=== PATIENT | male | born 1965 | race Caucasian/White ===

== ENCOUNTER 2021-11-05 11:43 | Observation (INO) | payer BC ==
--- NOTE | 2021-11-05 12:09 | ERPHSYRPT ---
- History of Present Illness Time Seen by Provider: 11/05/21 12:00 Source: patient, family Exam Limitations: no limitations Physician History: This is a 56-year-old white male patient of Dr. Elli Quintero who in May 2021 underwent a cervical spine fusion surgery and postoperatively he has had intermittent dysphagia that is worsened over the last 3 weeks. He has not able to eat solid foods for the last few weeks. He even is not drinking oral intake well. Patient has a history of elevated cholesterol and hypertension. Patient is feeling weak and dizzy and has fatigue. He denies chest pain. Denies cough and he denies shortness of breath. He presents to the emergency department with positive orthostatic vital signs. Timing/Duration: week(s) (3), worse Severity: moderate Character of Deficits: impaired swallowing Deficits: no difficulties Baseline/Normal Cognition: alert oriented x 3 Current Cognition: alert oriented x 3 Baseline Gait: uses cane Associated Symptoms: fatigue, weakness Allergies/Adverse Reactions: No Known Allergies Allergy (Verified 11/05/21 17:46) Travel Risk - International Travel Have you traveled outside of the country in past 3 weeks: No - Coronavirus Screening Are you exhibiting any of the following symptoms?: No Close contact with a COVID-19 positive Pt in past 14-21 Days: No - Review of Systems Constitutional: Fatigue, Weakness Eyes: No Symptoms, Photophobia Ears, Nose, & Throat: No Symptoms Respiratory: No Symptoms Cardiac: No Symptoms Abdominal/Gastrointestinal: Dysphagia, Appetite Changes Genitourinary Symptoms: No Symptoms (Solids) Musculoskeletal: No Symptoms Skin: No Symptoms Neurological: Dizziness Psychological: No Symptoms Endocrine: No Symptoms Hematologic/Lymphatic: No Symptoms Immunological/Allergic: No Symptoms All Other Systems: Reviewed and Negative - Past Medical History Neurological History: No Pertinent History Cardiac History: High Cholesterol, Hypertension, Other Respiratory History: No Pertinent History Endocrine Medical History: No Pertinent History Musculoskeletal History: Degenerative Disk Disease, Osteoarthritis Other Medical History: 01/2020 - Nursing Vital Signs Nursing Vital Signs: Initial Vital Signs Temperature 97.9 F 11/05/21 11:59 Pulse Rate 82 11/05/21 11:59 Respiratory Rate 24 11/05/21 11:59 Blood Pressure 132/80 11/05/21 11:59 O2 Sat by Pulse Oximetry 98 11/05/21 11:59 Pain Scale Pain Intensity 0 - [place] Coma Scale Best Eye Response ([place]): (4) open spontaneously Best Verbal Response (Anish): (5) oriented Best Motor Response (Anish): (6) obeys commands Anish Total: 15 - Physical Exam General Appearance: no apparent distress, alert, anxiety Eye Exam: bilateral eye: normal inspection, PERRL, EOMI Ears, Nose, Throat Exam: dry mucous membranes Neck Exam: normal inspection, non-tender, supple, full range of motion Respiratory: normal breath sounds, lungs clear, airway intact, No chest tenderness, No respiratory distress Cardiovascular: regular rate/rhythm, normal heart sounds, No normal peripheral pulses Gastrointestinal: soft, normal bowel sounds, No tenderness Rectal Exam: not done Back Exam: normal inspection, normal range of motion, No CVA tenderness, No vertebral tenderness Extremity Exam: normal inspection, normal range of motion, pelvis stable Mental Status: alert, oriented x 3, cooperative bus escort Exam: normal hearing, normal speech, PERRL Motor/Sensory: no motor deficit, no sensory deficit, no pronator drift Skin Exam: normal color, warm, dry SpO2 Interpretation: normal O2 Delivery: Room Air - Course Nursing assessment & vital signs reviewed: Yes EKG Interpreted by Me: RATE (76), Sinus Rhythm, NORMAL AXIS, prolonged QT interval, NORMAL QRS, NORMAL ST-T, Non-specific ST Changes, Other (No acute ischemic changes.) Ordered Tests: Active Orders 24 hr Category Date Time Status Concrete Panel Installer STAT Care 11/05/21 14:11 Active EKG-ER Only STAT Care 11/05/21 12:09 Active IV Insertion STAT Care 11/05/21 12:18 Active Orthostatic Vital Signs STAT Care 11/05/21 12:18 Active POCT Glucose Check STAT Care 11/05/21 12:09 Active HEAD WITHOUT CONTRAST [CT] Stat Exams 11/05/21 12:09 Completed AMYLASE Stat Lab 11/05/21 12:30 Completed CBC W DIFF Stat Lab 11/05/21 12:23 Completed CMP Stat Lab 11/05/21 12:23 Completed CULTURE,URINE Stat Lab 11/05/21 14:35 Received ETHYL ALCOHOL Stat Lab 11/05/21 12:23 Completed LIPASE Stat Lab 11/05/21 12:30 Completed Lactic Acid Stat Lab 11/05/21 14:03 Completed Lactic Acid Stat Lab 11/05/21 16:19 Received MAGNESIUM Stat Lab 11/05/21 12:23 Completed POCT GLUCOSE Stat Lab 11/05/21 12:14 Completed TROPONIN Q4H Lab 11/05/21 12:23 Completed TROPONIN Q4H Lab 11/05/21 15:58 Completed TROPONIN Q4H Lab 11/05/21 20:15 Ordered UA W/RFX CULTURE Stat Lab 11/05/21 14:35 Completed Medication Summary Generic Name Dose Route Start Last Admin Trade Name Freq PRN Reason Stop Dose Admin Potassium Chloride 20 meq in 100 mls @ 50 mls/hr 11/05/21 13:00 11/05/21 15:20 Potassium Chloride 20 Meq In Water 100ml IV 11/05/21 16:59 50 mls/hr Q2H HUMBERTO Administration Discontinued Medications Generic Name Dose Route Start Last Admin Trade Name Freq PRN Reason Stop Dose Admin Sodium Chloride Confirm 11/05/21 12:40 Sodium Chloride 0.9% 1000 Ml Administered 11/05/21 12:41 Dose 1,000 mls @ ud .ROUTE .STK-MED ONE Sodium Chloride 1,000 mls @ 999 mls/hr 11/05/21 14:01 11/05/21 15:44 Sodium Chloride 0.9% 1000 Ml IV 11/05/21 15:01 Infused .Q1H1M STA Infusion Ceftriaxone Sodium/Dextrose 1 g in 50 mls @ 100 mls/hr 11/05/21 16:03 11/05/21 17:22 Rocephin 1 Gm-D5w 50 Ml Bag IV 11/05/21 16:32 Infused STAT STA Infusion Sodium Chloride 1,000 mls @ 999 mls/hr 11/05/21 16:03 11/05/21 17:44 Sodium Chloride 0.9% 1000 Ml IV 11/05/21 17:03 Infused .Q1H1M STA Infusion Ceftriaxone Sodium/Dextrose Confirm 11/05/21 16:30 Rocephin 1 Gm-D5w 50 Ml Bag Administered 11/05/21 16:31 Dose 1 g in 50 mls @ ud IV .STK-MED ONE Lorazepam 1 mg 11/05/21 12:57 11/05/21 13:06 Lorazepam 2 Mg/1 Ml 2 Mg Vial IV 11/05/21 12:58 1 mg STAT ONE Administration Lorazepam Confirm 11/05/21 13:04 Lorazepam 2 Mg/1 Ml 2 Mg Vial Administered 11/05/21 13:05 Dose 2 mg .ROUTE .STK-MED ONE Lab/Rad Data: Laboratory Result Diagrams 11/05/21 12:23 11/05/21 12:23 Laboratory Results 11/05/21 11/05/21 11/05/21 Range/Units 15:58 14:37 14:35 WBC (4.0-10.5) x10^3/uL RBC (4.1-5.6) x10^6/uL Hgb (12.5-18.0) g/dL Hct (42-50) % MCV (78-100) fL MCH (26-32) pg MCHC (32-36) g/dL RDW (11.5-14.0) % Plt Count (150-450) x10^3/uL MPV (7.5-11.0) fL Gran % (36.0-66.0) % Immature Gran % (Auto) (0.00-0.4) % Nucleat RBC Rel Count (0.00-0.1) % Eos # (Auto) (0-0.5) x10^3/uL Immature Gran # (Auto) (0.00-0.03) x10^3u/L Absolute Lymphs (auto) (1.0-4.6) x10^3/uL Absolute Monos (auto) (0.0-1.3) x10^3/uL Absolute Nucleated RBC (0.00-0.01) x10^3u/L Lymphocytes % (24.0-44.0) % Monocytes % (0.0-12.0) % Eosinophils % (0.00-5.0) % Basophils % (0.0-0.4) % Absolute Granulocytes (1.4-6.9) x10^3/uL Basophils # (0-0.4) x10^3/uL Sodium (137-145) mmol/L Potassium (3.5-5.1) mmol/L Chloride (98-107) mmol/L Carbon Dioxide (22-30) mmol/L Anion Gap (5-15) MEQ/L BUN (9-20) mg/dL Creatinine (0.66-1.25) mg/dL Estimated GFR ML/MIN Glucose (74-106) mg/dL POC Glucometer (74 to 106) mg/dL Lactic Acid (0.4-2.0) Calcium (8.4-10.2) mg/dL Magnesium (1.6-2.3) mg/dL Total Bilirubin (0.2-1.3) mg/dL AST (17-59) U/L ALT (0-50) U/L Alkaline Phosphatase (38-126) U/L Troponin I < 0.012 (0.000-0.034) ng/mL Serum Total Protein (6.3-8.2) g/dL Albumin (3.5-5.0) g/dL Amylase (30-110) U/L Lipase (23-300) U/L Urinalys Dipstick Clnc MAIN LAB Urine Color DEJAN (YELLOW) Urine Appearance HAZY (CLEAR) Urine pH 5.5 (5-6) Ur Specific [place] >=1.030 (1.005-1.025) POC Urine Protein Conf TRACE (Negative) Urine Ketones LARGE-80 (NEGATIVE) Urine Nitrite POSITIVE (NEGATIVE) Urine Bilirubin MODERATE (NEGATIVE) Urine Urobilinogen 2 (0-1) mg/dL Urine Leukocytes NEGATIVE (NEGATIVE) Urine WBC (Auto) 3-5 (0-5) /HPF Urine RBC (Auto) NONE (0-2) /HPF U Epithel Cells (Auto) NONE (FEW) /HPF Urine Bacteria (Auto) FEW (NEGATIVE) /HPF Urine RBC NEGATIVE (0-5) Luis/ul Urine Mucus (Auto) SLIGHT (NEGATIVE) /HPF Ur Culture Indicated? YES Urine Glucose NEGATIVE (NEGATIVE) mg/dL Ethyl Alcohol (0-10) mg/dL Influenza Type A Ag NEGATIVE (NEGATIVE) Influenza Type B Ag NEGATIVE (NEGATIVE) RSV (PCR) NEGATIVE (Negative) SARS-CoV-2 (PCR) NEGATIVE (NEGATIVE) 11/05/21 11/05/21 11/05/21 Range/Units 14:03 12:30 12:23 WBC (4.0-10.5) x10^3/uL RBC (4.1-5.6) x10^6/uL Hgb (12.5-18.0) g/dL Hct (42-50) % MCV (78-100) fL MCH (26-32) pg MCHC (32-36) g/dL RDW (11.5-14.0) % Plt Count (150-450) x10^3/uL MPV (7.5-11.0) fL Gran % (36.0-66.0) % Immature Gran % (Auto) (0.00-0.4) % Nucleat RBC Rel Count (0.00-0.1) % Eos # (Auto) (0-0.5) x10^3/uL Immature Gran # (Auto) (0.00-0.03) x10^3u/L Absolute Lymphs (auto) (1.0-4.6) x10^3/uL Absolute Monos (auto) (0.0-1.3) x10^3/uL Absolute Nucleated RBC (0.00-0.01) x10^3u/L Lymphocytes % (24.0-44.0) % Monocytes % (0.0-12.0) % Eosinophils % (0.00-5.0) % Basophils % (0.0-0.4) % Absolute Granulocytes (1.4-6.9) x10^3/uL Basophils # (0-0.4) x10^3/uL Sodium (137-145) mmol/L Potassium (3.5-5.1) mmol/L Chloride (98-107) mmol/L Carbon Dioxide (22-30) mmol/L Anion Gap (5-15) MEQ/L BUN (9-20) mg/dL Creatinine (0.66-1.25) mg/dL Estimated GFR ML/MIN Glucose (74-106) mg/dL POC Glucometer (74 to 106) mg/dL Lactic Acid 3.9 H (0.4-2.0) Calcium (8.4-10.2) mg/dL Magnesium (1.6-2.3) mg/dL Total Bilirubin (0.2-1.3) mg/dL AST (17-59) U/L ALT (0-50) U/L Alkaline Phosphatase (38-126) U/L Troponin I < 0.012 (0.000-0.034) ng/mL Serum Total Protein (6.3-8.2) g/dL Albumin (3.5-5.0) g/dL Amylase 97 (30-110) U/L Lipase 443 H (23-300) U/L Urinalys Dipstick Clnc Urine Color (YELLOW) Urine Appearance (CLEAR) Urine pH (5-6) Ur Specific [place] (1.005-1.025) POC Urine Protein Conf (Negative) Urine Ketones (NEGATIVE) Urine Nitrite (NEGATIVE) Urine Bilirubin (NEGATIVE) Urine Urobilinogen (0-1) mg/dL Urine Leukocytes (NEGATIVE) Urine WBC (Auto) (0-5) /HPF Urine RBC (Auto) (0-2) /HPF U Epithel Cells (Auto) (FEW) /HPF Urine Bacteria (Auto) (NEGATIVE) /HPF Urine RBC (0-5) Luis/ul Urine Mucus (Auto) (NEGATIVE) /HPF Ur Culture Indicated? Urine Glucose (NEGATIVE) mg/dL Ethyl Alcohol (0-10) mg/dL Influenza Type A Ag (NEGATIVE) Influenza Type B Ag (NEGATIVE) RSV (PCR) (Negative) SARS-CoV-2 (PCR) (NEGATIVE) 11/05/21 11/05/21 11/05/21 Range/Units 12:23 12:23 12:14 WBC 11.1 H (4.0-10.5) x10^3/uL RBC 4.26 (4.1-5.6) x10^6/uL Hgb 15.7 (12.5-18.0) g/dL Hct 43.0 (42-50) % MCV 100.9 H (78-100) fL MCH 36.9 H (26-32) pg MCHC 36.5 H (32-36) g/dL RDW 14.1 H (11.5-14.0) % Plt Count 200 (150-450) x10^3/uL MPV 10.2 (7.5-11.0) fL Gran % 76.6 H (36.0-66.0) % Immature Gran % (Auto) 1.0 H (0.00-0.4) % Nucleat RBC Rel Count 0.0 (0.00-0.1) % Eos # (Auto) 0.02 (0-0.5) x10^3/uL Immature Gran # (Auto) 0.11 H (0.00-0.03) x10^3u/L Absolute Lymphs (auto) 1.47 (1.0-4.6) x10^3/uL Absolute Monos (auto) 0.90 (0.0-1.3) x10^3/uL Absolute Nucleated RBC 0.00 (0.00-0.01) x10^3u/L Lymphocytes % 13.2 L (24.0-44.0) % Monocytes % 8.1 (0.0-12.0) % Eosinophils % 0.2 (0.00-5.0) % Basophils % 0.9 (0.0-0.4) % Absolute Granulocytes 8.52 H (1.4-6.9) x10^3/uL Basophils # 0.10 (0-0.4) x10^3/uL Sodium 129 L (137-145) mmol/L Potassium 2.3 L* (3.5-5.1) mmol/L Chloride 89 L (98-107) mmol/L Carbon Dioxide 26 (22-30) mmol/L Anion Gap 16.6 H (5-15) MEQ/L BUN 10 (9-20) mg/dL Creatinine 0.83 (0.66-1.25) mg/dL Estimated GFR > 60.0 ML/MIN Glucose 105 (74-106) mg/dL POC Glucometer 113 H (74 to 106) mg/dL Lactic Acid (0.4-2.0) Calcium 8.3 L (8.4-10.2) mg/dL Magnesium 2.0 (1.6-2.3) mg/dL Total Bilirubin 3.40 H (0.2-1.3) mg/dL AST 102 H (17-59) U/L ALT 39 (0-50) U/L Alkaline Phosphatase 163 H (38-126) U/L Troponin I (0.000-0.034) ng/mL Serum Total Protein 7.7 (6.3-8.2) g/dL Albumin 3.8 (3.5-5.0) g/dL Amylase (30-110) U/L Lipase (23-300) U/L Urinalys Dipstick Clnc Urine Color (YELLOW) Urine Appearance (CLEAR) Urine pH (5-6) Ur Specific [place] (1.005-1.025) POC Urine Protein Conf (Negative) Urine Ketones (NEGATIVE) Urine Nitrite (NEGATIVE) Urine Bilirubin (NEGATIVE) Urine Urobilinogen (0-1) mg/dL Urine Leukocytes (NEGATIVE) Urine WBC (Auto) (0-5) /HPF Urine RBC (Auto) (0-2) /HPF U Epithel Cells (Auto) (FEW) /HPF Urine Bacteria (Auto) (NEGATIVE) /HPF Urine RBC (0-5) Luis/ul Urine Mucus (Auto) (NEGATIVE) /HPF Ur Culture Indicated? Urine Glucose (NEGATIVE) mg/dL Ethyl Alcohol < 10 (0-10) mg/dL Influenza Type A Ag (NEGATIVE) Influenza Type B Ag (NEGATIVE) RSV (PCR) (Negative) SARS-CoV-2 (PCR) (NEGATIVE) - Progress Progress: improved, re-examined Progress Note: 11/05/21 14:10 CAT scan of the head without contrast shows a remote lacunar infarct of the left basal ganglia. There is global atrophy present. There is no acute intracranial abnormality. 11/05/21 17:43 Medical decision making: I spoke with Dr. Prieto who is covering for unassigned patients. This patient has a significant urinary tract infection. He is significantly dehydrated. We were just informed that the patient does have a significant alcohol history. His alcohol level is normal at this time. Pharmacy is not available to order a banana bag at this time. We will IV hydrate him and provide him with K riders during the evening. We will repeat labs in the morning. We will keep his head of the bed up and allow him to take in clear liquids only. We have requested the cervical spine fusion surgical records from [facility]. Dr. Prieto will order GI swallowing studies. Counseled pt/family regarding: lab results, diagnosis - Departure Departure Disposition: In-patient Admission Clinical Impression: Dehydration, Hypokalemia, Dysphagia Condition: Fair Critical Care Time: No
[2021-11-05 12:26] LABS: Absolute Neutrophil Ct (ANC) 8.52 x10^3/uL (1.4-6.9); Eosinophil % 0.2 % (0.00-5.0); Eosinophil (Absolute #) 0.02 x10^3/uL (0-0.5); Hemoglobin 15.7 g/dL (12.5-18.0); Lymphocyte (Absolute #) 1.47 x10^3/uL (1.0-4.6); Lymphocytes % 13.2 % (24.0-44.0); Mean Cell Volume 100.9 fL (78-100); Mean Corpuscular Hemoglobin 36.9 pg (26-32); Mean Corpuscular Hgb Concent. 36.5 g/dL (32-36); Mean Platelet Volume 10.2 fL (7.5-11.0); Monocytes % 8.1 % (0.0-12.0); Neutrophil % 76.6 % (36.0-66.0); Platelet Count 200 x10^3/uL (150-450); Red Blood Count 4.26 x10^6/uL (4.1-5.6); Red Cell Distribution Width 14.1 % (11.5-14.0); White Blood Count 11.1 x10^3/uL (4.0-10.5)
[2021-11-05] MEDS ORDERED: Sodium Chloride 0.9% 1000 ML 1,000 ML ONE (12:40)
[2021-11-05 12:46] LABS: ALBUMIN 3.8 g/dL (3.5-5.0); ALKALINE PHOSPHATASE 163 U/L (38-126); ANION GAP 16.6 MEQ/L (5-15); BLOOD UREA NITROGEN 10 mg/dL (9-20); CHLORIDE 89 mmol/L (98-107); Calcium 8.3 mg/dL (8.4-10.2); Carbon Dioxide 26 mmol/L (22-30); Creatinine 1 0.83 mg/dL (0.66-1.25); EST GLOMERULAR FILTRATION RATE > 60.0 ML/MIN; ETHYL ALCOHOL < 10 mg/dL (0-10); Glucose 105 mg/dL (74-106); SGOT/AST 102 U/L (17-59); SGPT/ALT 39 U/L (0-50); SODIUM 129 mmol/L (137-145); Total Protein 7.7 g/dL (6.3-8.2)
[2021-11-05 12:48] LABS: Potassium 2.3 mmol/L (3.5-5.1)
--- NOTE | 2021-11-05 12:54 | XRAY ---
Indication: Syncope and weakness 5 months. High blood pressure. Multiple contiguous axial images obtained through the head without contrast. Comparison: None Age-appropriate global atrophy. Remote lacunar infarct left basal ganglia. No acute intracranial hemorrhage, abnormal extra-axial fluid collection, or mass effect. Fourth ventricle is midline without hydrocephalus. Bony calvarium intact. Complete opacification right maxillary sinus with mild mucosal thickening both ethmoid sinuses. Mastoid air cells are clear. Impression: Remote lacunar infarct left basal ganglia and paranasal sinus disease. Remaining CT head without contrast exam is negative.
[2021-11-05] MEDS ORDERED: Ativan 2 MG/1 ML VIAL IV ONE (12:57)
[2021-11-05] MEDS ORDERED: Ativan 2 MG/1 ML VIAL ONE (13:04)
[2021-11-05] MEDS: POTASSIUM CHLORIDE 20 mEq IN WATER 100ML 20 MEQ/100 ML BAG IV SCH ×2 (13:06→15:20)
[2021-11-05] MEDS ORDERED: Sodium Chloride 0.9% 1000 ML 1,000 ML IV STA ×2 (14:01→16:03)
[2021-11-05 14:44] LABS: Appearance HAZY (CLEAR); Bilirubin MODERATE (NEGATIVE); Glucose NEGATIVE (NEGATIVE); Ketones LARGE-80 (NEGATIVE); Ph 5.5 (5-6); Protein,Urine Dip TRACE (Negative); RBC NEGATIVE Ery/ul (0-5); Specific Gravity >=1.030 (1.005-1.025)
[2021-11-05 14:45] LABS: Dipstick done @ ? MAIN LAB; Nitrite POSITIVE (NEGATIVE); Urobilinogen 2 mg/dL (0-1)
[2021-11-05 14:48] LABS: AMYLASE 97 U/L (30-110); LIPASE 443 U/L (23-300)
[2021-11-05 14:48] LABS: Bacteria FEW /HPF (NEGATIVE); Mucus SLIGHT /HPF (NEGATIVE)
[2021-11-05 14:49] LABS: Urine Cultured Indicated? YES
[2021-11-05 15:14] LABS: INFLUENZA A NEGATIVE (NEGATIVE); INFLUENZA B NEGATIVE (NEGATIVE); RESPIRATORY SYNCTIAL VIRUS NEGATIVE (Negative); SARS-CoV-2 Xpert Express NEGATIVE (NEGATIVE)
[2021-11-05] MEDS ORDERED: ROCEPHIN 1 Gm-D5w 50 ml Bag** 1 G/50 ML IVPB IV STA (16:03)
[2021-11-05] MEDS ORDERED: ROCEPHIN 1 Gm-D5w 50 ml Bag** 1 G/50 ML IVPB IV ONE (16:30)
[2021-11-05] MEDS ORDERED: TYLENOL 325 MG PO PRN (18:12)
[2021-11-05] MEDS ORDERED: FOLATE 1 MG PO ONE (18:16)
[2021-11-05] MEDS ORDERED: VITAMIN B-1 100 MG PO ONE (18:16)
[2021-11-05] MEDS ORDERED: Ativan 2 MG/1 ML VIAL IV PRN (18:18)
[2021-11-05] MEDS: Sodium Chloride 0.9% W/ 20 mEq KCl/LITER 1,000 ML IV SCH (18:48)
[2021-11-05] MEDS ORDERED: Zofran 4 MG/2 ML VIAL IV PRN (19:34)
[2021-11-05 20:53] LABS: ANION GAP 8.1 MEQ/L (5-15); BLOOD UREA NITROGEN 8 mg/dL (9-20); CHLORIDE 92 mmol/L (98-107); Calcium 7.7 mg/dL (8.4-10.2); Carbon Dioxide 31 mmol/L (22-30); Creatinine 1 0.73 mg/dL (0.66-1.25); EST GLOMERULAR FILTRATION RATE > 60.0 ML/MIN; Glucose 93 mg/dL (74-106); SODIUM 128 mmol/L (137-145)
[2021-11-05 21:02] LABS: Potassium 2.8 mmol/L (3.5-5.1)
[2021-11-05] MEDS: K-LYTE PO ONE (21:23)
[2021-11-05] MEDS: POTASSIUM CHLORIDE 20 mEq IN WATER 100ML 100 ML IV SCH (21:24)
[2021-11-06] MEDS: POTASSIUM CHLORIDE 20 mEq IN WATER 100ML 100 ML IV SCH (00:02)
[2021-11-06] MEDS: Sodium Chloride 0.9% W/ 20 mEq KCl/LITER 1,000 ML IV SCH ×2 (02:39→09:07)
[2021-11-06 05:00] LABS: Hematocrit 39.5 % (42-50); Hemoglobin 14.1 g/dL (12.5-18.0); Mean Cell Volume 101.8 fL (78-100); Mean Corpuscular Hemoglobin 36.3 pg (26-32); Mean Corpuscular Hgb Concent. 35.7 g/dL (32-36); Mean Platelet Volume 10.1 fL (7.5-11.0); Platelet Count 156 x10^3/uL (150-450); Red Blood Count 3.88 x10^6/uL (4.1-5.6); Red Cell Distribution Width 14.7 % (11.5-14.0); White Blood Count 6.6 x10^3/uL (4.0-10.5)
[2021-11-06 05:24] LABS: ALBUMIN 2.8 g/dL (3.5-5.0); ALKALINE PHOSPHATASE 113 U/L (38-126); ANION GAP 7.3 MEQ/L (5-15); BLOOD UREA NITROGEN 8 mg/dL (9-20); CHLORIDE 97 mmol/L (98-107); Calcium 7.7 mg/dL (8.4-10.2); Carbon Dioxide 30 mmol/L (22-30); Creatinine 1 0.66 mg/dL (0.66-1.25); EST GLOMERULAR FILTRATION RATE > 60.0 ML/MIN; Glucose 87 mg/dL (74-106); SGOT/AST 79 U/L (17-59); SGPT/ALT 31 U/L (0-50); SODIUM 131 mmol/L (137-145)
[2021-11-06 05:31] LABS: Potassium 2.8 mmol/L (3.5-5.1)
[2021-11-06] MEDS ORDERED: K-LYTE PO ONE (05:46)
[2021-11-06] MEDS: K-LYTE PO ONE (05:54)
[2021-11-06] MEDS ORDERED: POTASSIUM CHLORIDE 20 mEq IN WATER 100ML 100 ML IV SCH (06:00)
[2021-11-06] MEDS ORDERED: VITAMIN B-1 100 MG PO SCH (10:00)
[2021-11-06] MEDS ORDERED: FOLATE 1 MG PO SCH (10:00)
[2021-11-06] MEDS ORDERED: THIAMINE 200 MG/2 ML*** 100 MG, Vitamins For Infusion 10 ML INJECTION*** 10 ML, FOLNATE... IV PRN ×4 (11:00)
[2021-11-06 13:04] LABS: ANION GAP 9.8 MEQ/L (5-15); BLOOD UREA NITROGEN 8 mg/dL (9-20); CHLORIDE 97 mmol/L (98-107); Calcium 7.7 mg/dL (8.4-10.2); Carbon Dioxide 28 mmol/L (22-30); Creatinine 1 0.64 mg/dL (0.66-1.25); EST GLOMERULAR FILTRATION RATE > 60.0 ML/MIN; Glucose 120 mg/dL (74-106); Potassium 3.1 mmol/L (3.5-5.1); SODIUM 132 mmol/L (137-145)
[2021-11-06 15:39] VITALS: BP 122/86; PULSE 91; O2SAT 96
[2021-11-06] MEDS ORDERED: ROCEPHIN 1 Gm-D5w 50 ml Bag** 1 G/50 ML IVPB IV SCH (22:00)
--- NOTE | 2021-11-06 23:58 | PCM.HP ---
History of Present Illness - Chief Complaint Chief Complaint: DEHYDRATION, HYPOKALEMIA, DYSPHAGIA History of Present Illness: is a 56 year old male. Medications & Allergies Home Medications: Home Medication List Cefuroxime Axetil 500 mg [Ceftin 500 mg] 500 mg PO BID #14 tablet 11/06/21 [Rx] Potassium Chloride [Klor-Con M20] 20 meq PO DAILY #10 tablet 11/06/21 [Rx] Allergies/Adverse Reactions: Allergies Allergy/AdvReac Type Severity Reaction Status Date / Time No Known Allergies Allergy Verified 11/05/21 17:46 - Past Medical History Past Medical History: Yes Neurological History: No Pertinent History ENT History: No Pertinent History Cardiac History: High Cholesterol, Hypertension, Other Respiratory History: No Pertinent History Endocrine Medical History: No Pertinent History Musculoskelatal History: Degenerative Disk Disease, Osteoarthritis GI Medical History: No Pertinent History History: No Pertinent History Pyscho-Social History: Anxiety, Depression Male Reproductive Disorders: No Pertinent History Comment: 01/2020 - Past Surgical History Past Surgical History: Yes Neuro Surgical History: Other Cardiac History: Cardiac Catheterization Respiratory Surgery: No Pertinent History GI Surgical History: Hernia Repair Genitourinary Surgical Hx: No Pertinent History Musculskeletal Surgical Hx: No Pertinent History Male Surgical History: No Pertinent History Other Surgical History: Neck and back surgery. - Social History Smoking Status: Never smoker Exposure to second hand smoke: No Alcohol: Daily Drug Use: none - Physical Exam Vital Signs: Vital Signs - 24 hr Temp Pulse Resp BP Pulse Ox 11/06/21 16:00 16 11/06/21 15:38 97.6 F 91 H 16 122/86 96 11/06/21 11:29 97.9 F 77 18 117/65 94 L 11/06/21 11:17 16 11/06/21 08:00 16 11/06/21 07:06 98.1 F 78 16 115/73 95 11/06/21 04:00 95.7 F 88 15 115/69 94 L 11/06/21 00:00 16 Results - Labs Lab/Micro Results: Lab Results-Last 24 Hours 11/06/21 11/06/21 11/06/21 Range/Units 04:30 04:30 12:45 WBC 6.6 (4.0-10.5) x10^3/uL RBC 3.88 L (4.1-5.6) x10^6/uL Hgb 14.1 (12.5-18.0) g/dL Hct 39.5 L (42-50) % MCV 101.8 H (78-100) fL MCH 36.3 H (26-32) pg MCHC 35.7 (32-36) g/dL RDW 14.7 H (11.5-14.0) % Plt Count 156 (150-450) x10^3/uL MPV 10.1 (7.5-11.0) fL Sodium 131 L 132 L (137-145) mmol/L Potassium 2.8 L* 3.1 L (3.5-5.1) mmol/L Chloride 97 L 97 L (98-107) mmol/L Carbon Dioxide 30 28 (22-30) mmol/L Anion Gap 7.3 9.8 (5-15) MEQ/L BUN 8 L 8 L (9-20) mg/dL Creatinine 0.66 0.64 L (0.66-1.25) mg/dL Estimated GFR > 60.0 > 60.0 ML/MIN Glucose 87 120 H (74-106) mg/dL Calcium 7.7 L 7.7 L (8.4-10.2) mg/dL Magnesium 2.0 (1.6-2.3) mg/dL Total Bilirubin 2.10 H (0.2-1.3) mg/dL AST 79 H (17-59) U/L ALT 31 (0-50) U/L Alkaline Phosphatase 113 (38-126) U/L Serum Total Protein 6.0 L (6.3-8.2) g/dL Albumin 2.8 L (3.5-5.0) g/dL Microbiology 11/05/21 14:35 Urine Culture - Preliminary Clean Catch Midstream NO GROWTH TO DATE - Radiology Impressions Radiology Exams & Impressions: Radiology Procedures Category Date Time Status HEAD WITHOUT CONTRAST [CT] Stat Exams 11/05/21 12:09 Completed Assessment/Plan (1) Dehydration Status: Resolved Assessment & Plan: resolved after overnight IV hydration Code(s): E86.0 - DEHYDRATION (2) Hypokalemia Assessment & Plan: will need to be monitored by PCP on discharge. Code(s): E87.6 - HYPOKALEMIA (3) Dysphagia Status: Suspected Qualifiers: Dysphagia type: unspecified Qualified Code(s): R13.10 - Dysphagia, unspecified Assessment & Plan: refused Speech therapiy evaluation Code(s): R13.10 - DYSPHAGIA, UNSPECIFIED (4) Leukocytosis Status: Resolved Assessment & Plan: presumed from UTI Code(s): D72.829 - ELEVATED WHITE BLOOD CELL COUNT, UNSPECIFIED (5) UTI (urinary tract infection) Status: Acute Assessment & Plan: started on Rocephin in ER, Culture pending. Code(s): N39.0 - URINARY TRACT INFECTION, SITE NOT SPECIFIED
== END 2021-11-06 16:36 | disposition home or self-care (01) ==
LOC: ED 11:43 → MED SURG 17:43
PROVIDERS: ADMIT Family Medicine; ATTEND Family Medicine
DX: E86.0 Dehydration (principal); E87.6 Hypokalemia; R13.10 Dysphagia, unspecified; D72.829 Elevated white blood cell count, unspecified; N39.0 Urinary tract infection, site not specified; I10 Essential (primary) hypertension; E78.00 Pure hypercholesterolemia, unspecified; Z79.899 Other long term (current) drug therapy; Z20.828 Contact with and (suspected) exposure to other viral communicable diseases
CPT/HCPCS: 0241U; 36000; 36415; 70450; 80048; 80053; 80307; 81015; 82150; 82947; 83605; 83690; 83735; 84484; 85025; 85027; 87086; 93005; 93041; 96360; 96361; 96365; 96374; 99285; 93268; J0696; J2060; J3480; A9270-GY; G0378; G0480

== ENCOUNTER 2023-01-15 07:30 | Day surgery (SDC) | payer BC, OTHER ==
[2023-01-15] MEDS ORDERED: Decadron 4 MG INJ IV ONE (07:31)
[2023-01-15] MEDS ORDERED: LIDOCAINE HCL 2% 100 MG/5 ML IJ ONE (07:31)
[2023-01-15] MEDS ORDERED: DIPRIVAN 200 MG/20 ML IV ONE (10:00)
[2023-01-15] MEDS ORDERED: Lactated Ringers 1,000 ML IV ONE (10:36)
--- NOTE | 2023-01-15 11:46 | XRAY ---
Indication: Right C3-C5 MBB. Intraoperative fluoroscopy provided for 32 seconds. 2 digital spot images submitted for interpretation demonstrates posterior needle tips projecting over the expected right C3-C5 nerve roots. Correlate with intraoperative findings/report. Incidental lower cervical fusion hardware.
--- NOTE | 2023-01-15 11:52 | XRAY ---
32 seconds of fluoroscopy was used in surgery for a right C3-C5 MBB.
== END 2023-01-15 10:32 | disposition home or self-care (01) ==
LOC: SDC-PAIN 07:30
PROVIDERS: ATTEND Psychiatry & Neurology Pain Medicine
DX: M47.812 Spondylosis without myelopathy or radiculopathy, cervical region (principal)
CPT/HCPCS: 64490; 64491; 72040; 77002; J1100; J2704

== ENCOUNTER 2023-02-26 10:14 | Day surgery (SDC) | payer OTHER ==
[2023-02-26] MEDS ORDERED: Decadron 4 MG INJ IV ONE (10:15)
[2023-02-26] MEDS ORDERED: BUPIVACAINE 0.5% VIAL IJ ONE (10:15)
[2023-02-26] MEDS ORDERED: Versed 2 MG/2 ML Injection ONE (12:17)
[2023-02-26] MEDS ORDERED: DIPRIVAN 200 MG/20 ML IV ONE (12:17)
--- NOTE | 2023-02-26 13:59 | XRAY ---
Indication: Right C3-C5 MBB. Intraoperative fluoroscopy provided for 33 seconds. 5 digital spot images submitted for interpretation demonstrates posterior needle tips projecting over the expected right C3-C5 nerve roots. Correlate with intraoperative findings/report.
[2023-02-26] MEDS ORDERED: Lactated Ringers 1,000 ML IV ONE (16:32)
--- NOTE | 2023-02-26 16:57 | XRAY ---
33 seconds of fluoroscopy was used in surgery for a right C3-C5 MBB.
== END 2023-02-26 12:55 | disposition home or self-care (01) ==
LOC: SDC-PAIN 10:14
PROVIDERS: ATTEND Psychiatry & Neurology Pain Medicine
DX: M47.812 Spondylosis without myelopathy or radiculopathy, cervical region (principal)
CPT/HCPCS: 64490; 64491; 72040; 77002; J1100; J2250; J2704

== ENCOUNTER 2023-04-16 11:26 | Day surgery (SDC) | payer OTHER ==
[2023-04-16] MEDS ORDERED: XYLOCAINE-MPF 1% 5ML SDV IJ ONE (11:27)
[2023-04-16] MEDS ORDERED: BUPIVACAINE 0.5% VIAL IJ ONE (11:27)
[2023-04-16] MEDS ORDERED: Decadron 4 MG INJ IV ONE (11:27)
[2023-04-16] MEDS ORDERED: Lactated Ringers 1,000 ML IV ONE (13:43)
[2023-04-16] MEDS ORDERED: DIPRIVAN 200 MG/20 ML IV ONE ×2 (13:54→14:06)
--- NOTE | 2023-04-16 17:01 | XRAY ---
Indication: Right C3-C5 RFA. Intraoperative fluoroscopy provided for 40 seconds. 6 digital spot images submitted for interpretation demonstrates posterior needle tips projecting over the expected right C3-C5 nerve roots. Correlate with intraoperative findings/report. Incidental incompletely visualized lower cervical fusion hardware.
--- NOTE | 2023-04-16 17:42 | XRAY ---
40 seconds of fluoroscopy was used in surgery for a right C3-C5 RFA.
== END 2023-04-16 14:32 | disposition home or self-care (01) ==
LOC: SDC-PAIN 11:26
PROVIDERS: ATTEND Psychiatry & Neurology Pain Medicine
DX: M47.812 Spondylosis without myelopathy or radiculopathy, cervical region (principal)
CPT/HCPCS: 64633; 64634; 72040; 77002; J1100; J2704

== ENCOUNTER 2023-12-10 11:02 | Day surgery (SDC) | payer BC, MEDICARE ==
[2023-12-10] MEDS ORDERED: Xylocaine-Mpf 2% 5 Ml Vial IJ ONE (11:03)
[2023-12-10] MEDS ORDERED: Decadron 4 MG INJ IV ONE (11:03)
[2023-12-10] MEDS ORDERED: DIPRIVAN 200 MG/20 ML IV ONE (13:33)
[2023-12-10] MEDS ORDERED: Lactated Ringers 1,000 ML IV ONE (14:47)
--- NOTE | 2023-12-10 14:48 | XRAY ---
Indication: Left C3-C5 MBB. Intraoperative fluoroscopy provided for 18 seconds. 2 digital spot images submitted for interpretation demonstrates posterior needle tips projecting over the expected left C3-C5 nerve roots. Correlate with intraoperative findings/report. Incidental incompletely visualized lower cervical fusion hardware.
--- NOTE | 2023-12-10 15:00 | XRAY ---
18 seconds of fluoroscopy was used in surgery for a left C3-C5 MBB.
== END 2023-12-10 14:10 | disposition home or self-care (01) ==
LOC: SDC-PAIN 11:02
PROVIDERS: ATTEND Psychiatry & Neurology Pain Medicine
DX: M47.812 Spondylosis without myelopathy or radiculopathy, cervical region (principal)
CPT/HCPCS: 64490; 64491; 72040; 77002; J1100; J2704

== ENCOUNTER 2024-01-21 10:09 | Day surgery (SDC) | payer MEDICARE ==
[2024-01-21] MEDS ORDERED: BUPIVACAINE 0.5% VIAL IJ ONE (10:10)
[2024-01-21] MEDS ORDERED: DIPRIVAN 200 MG/20 ML IV ONE (12:25)
--- NOTE | 2024-01-21 14:18 | XRAY ---
Indication: Left C3-C5 MBB. Intraoperative fluoroscopy provided for 16 seconds. 3 digital spot image submitted for interpretation demonstrates posterior needle tips projecting over the expected left C3-C5 nerve roots. Correlate with intraoperative findings/report. Incidental lower cervical fusion hardware.
--- NOTE | 2024-01-21 14:23 | XRAY ---
16 seconds of fluoroscopy was used in surgery for a left C3-C5 MBB.
== END 2024-01-21 12:58 | disposition home or self-care (01) ==
LOC: SDC-PAIN 10:09
PROVIDERS: ATTEND Psychiatry & Neurology Pain Medicine
DX: M47.812 Spondylosis without myelopathy or radiculopathy, cervical region (principal)
CPT/HCPCS: 64490; 64491; 72040; 77002; J2704

== ENCOUNTER 2024-02-25 06:39 | Day surgery (SDC) | payer MEDICARE ==
[2024-02-25] MEDS ORDERED: LIDOCAINE HCL 1% AMPUL 5 ML IJ ONE (06:40)
[2024-02-25] MEDS ORDERED: BUPIVACAINE 0.5% VIAL IJ ONE (06:40)
[2024-02-25] MEDS ORDERED: Decadron 4 MG INJ IV ONE (06:40)
[2024-02-25] MEDS ORDERED: DIPRIVAN 200 MG/20 ML IV ONE ×3 (08:01→08:18)
--- NOTE | 2024-02-25 10:08 | XRAY ---
Indication: Left C3-C5 RFA. Intraoperative fluoroscopy provided for 25 seconds. 5 digital spot image submitted for interpretation demonstrates posterior needle tips projecting over expected left C3-C5 nerve roots. Correlate with intraoperative findings/report. Incidental lower cervical fusion hardware.
--- NOTE | 2024-02-25 11:01 | XRAY ---
25 seconds of fluoroscopy was used in surgery for a left C3-C5 RFA.
== END 2024-02-25 08:43 | disposition home or self-care (01) ==
LOC: SDC-PAIN 06:39
PROVIDERS: ATTEND Psychiatry & Neurology Pain Medicine
DX: M47.812 Spondylosis without myelopathy or radiculopathy, cervical region (principal)
CPT/HCPCS: 72040; 77002; J1100; J2704

== ENCOUNTER 2024-06-16 10:51 | Emergency (ER) | payer MEDICARE ==
[2024-06-16 11:02] VITALS: TEMP 97.9
[2024-06-16] MEDS ORDERED: Zofran 4 MG/2 ML VIAL ONE ×2 (11:33→20:41)
[2024-06-16] MEDS ORDERED: Sodium Chloride 0.9% 500 ML 500 ML IV ONE (11:33)
[2024-06-16] MEDS: Sodium Chloride 0.9% 500 ML 500 ML IV ONE (11:36)
[2024-06-16] MEDS: Zofran 4 MG/2 ML VIAL IV ONE ×2 (11:37→20:45)
--- NOTE | 2024-06-16 11:37 | ERPHSYRPT ---
- History of Present Illness Historian: patient Exam Limitations: no limitations Patient Subjective Stated Complaint: Pt states "I went to [facility] and she ordered a ct and blood work and they think that my gall bladder is leaking and tole me to come here." Triage Nursing Assessment: Pt presented alert and oriented X 3, skin wpd. pt ambulates with an upright steady gait, able to speak in clear full sentences.Pt resting comfortably on the bed. Timing/Duration: week(s) (8) Activities at Onset: none Quality: aching Abdominal Pain Onset Location: RUQ Pain Radiation: no radiation Severity of Pain-Max: mild Severity of Pain-Current: mild Modifying Factors: Improves With: eating Associated Symptoms: diarrhea, loss of appetite, nausea, vomiting, No rash Previous symptoms: same symptoms as today Hx Tetanus, Diphtheria Vaccination/Date Given: No Hx Influenza Vaccination/Date Given: No Hx Pneumococcal Vaccination/Date Given: No Immunizations Up to Date: No - History of Present Illness Time Seen by Provider: 06/16/24 11:20 Physician History: 59yo m pmhx HTN, chronic alcohol use presents via private vehicle for nausea and vomiting that has been ongoing for the past 2 months. Pt reports he had lab work and a CT abd/pelvis w/ contrast ordered by his PCP (Christopher) that were performed yesterday, reports her office called and recommended he come to the ED because his "gallbladder is leaking." Pt reports he has had limited PO intake for the past 2 months. Pt reports vomiting green bilious fluids this AM, also endorses intermittent diarrhea for the past 2 months. Pt currently has holter monitor on for further w/u of his weakness and nausea - was ordered by PCP. (SANGITA OLIVIER) Allergies/Adverse Reactions: No Known Allergies Allergy (Verified 11/05/21 17:46) Home Medications: Carvedilol 3.125 mg [Coreg 3.125 MG] 3.125 mg PO BID 06/16/24 [History] Lisinopril 20 mg [Zestril 20 MG] 20 mg PO BID 06/16/24 [History] Pregabalin [Lyrica 150Mg] 150 mg PO TID 06/16/24 [History] methocarbamoL [Methocarbamol] 500 mg PO BID 06/16/24 [History] Travel Risk - International Travel Have you traveled outside of the country in past 3 weeks: No - Emerging Infectious Disease Symptoms: Abdominal Pain - Review of Systems Constitutional: Weakness, No Fever, No Chills Respiratory: No Symptoms Cardiac: No Symptoms Abdominal/Gastrointestinal: Abdominal Pain, Nausea, Vomiting, Diarrhea, Appetite Changes, No Constipation, No Hematemesis, No Hematochezia Genitourinary Symptoms: No Symptoms - Past Medical History Pertinent Past Medical History: Yes Neurological History: No Pertinent History ENT History: No Pertinent History Cardiac History: High Cholesterol, Hypertension, Other Respiratory History: No Pertinent History Endocrine Medical History: No Pertinent History Musculoskeletal History: Degenerative Disk Disease, Osteoarthritis GI Medical History: No Pertinent History History: No Pertinent History Psycho-Social History: Anxiety, Depression Male Reproductive Disorders: No Pertinent History Other Medical History: 01/2020 - Past Surgical History Past Surgical History: Yes Neuro Surgical History: Other Cardiac: Cardiac Catheterization Respiratory: No Pertinent History Gastrointestinal: Hernia Repair Genitourinary: No Pertinent History Musculoskeletal: No Pertinent History Male Surgical History: No Pertinent History Other Surgical History: Neck and back surgery. - Social History Smoking Status: Never smoker Exposure to second hand smoke: Yes Drug Use: none - Social Determinants of Health Will the patient participate in the screening: Declined to provide - Physical Exam General Appearance: no apparent distress, alert, obese Eye Exam: scleral icterus Ears, Nose, Throat Exam: normal ENT inspection Respiratory Exam: normal breath sounds, lungs clear, airway intact, No chest tenderness, No respiratory distress Cardiovascular Exam: regular rate/rhythm, normal heart sounds, normal peripheral pulses Gastrointestinal/Abdomen Exam: soft, normal bowel sounds, distention, No tenderness, No guarding, No rebound SpO2 Interpretation: normal SpO2: 98 O2 Delivery: Room Air - Nursing Vital Signs Nursing Vital Signs: Initial Vital Signs Temperature 97.9 F 06/16/24 10:56 Pulse Rate 90 06/16/24 10:56 Respiratory Rate 20 06/16/24 10:56 Blood Pressure 137/74 06/16/24 10:56 O2 Sat by Pulse Oximetry 98 06/16/24 10:56 Pain Scale Pain Intensity 0 - Course EKG Interpreted by Me: RATE (83), Sinus Rhythm, Non-specific ST Changes (not suggestive of acute ischemia), Other (qtcb [id number]) Ordered Tests: Active Orders 24 hr Category Date Time Status IV Insertion STAT Care 06/16/24 11:00 Completed GALLBLADDER [US] Stat Exams 06/16/24 11:26 Completed Alcohol [ETHYL ALCOHOL] Stat Lab 06/16/24 16:15 Completed BMP Stat Lab 06/16/24 11:30 Completed CBC W DIFF Stat Lab 06/16/24 11:30 Completed CULTURE,URINE Stat Lab 06/16/24 14:55 Received Hepatic Function Panel Stat Lab 06/16/24 11:30 Completed LIPASE Stat Lab 06/16/24 11:30 Completed Lactic Acid Routine Lab 06/16/24 15:18 Completed Lactic Acid Stat Lab 06/16/24 11:30 Completed Lactic Acid Stat Lab 06/16/24 13:35 Completed PROTIME WITH INR Stat Lab 06/16/24 11:30 Completed TROPONIN Q4H Lab 06/16/24 11:30 Completed TROPONIN Q4H Lab 06/16/24 15:21 Completed TROPONIN Q4H Lab 06/16/24 19:30 Completed UA W/RFX UR CULTURE Stat Lab 06/16/24 14:55 Completed VENOUS BLOOD GAS Urgent Lab 06/16/24 15:18 Completed Medication Summary Discontinued Medications Generic Name Dose Route Start Last Admin Trade Name Freq PRN Reason Stop Dose Admin Sodium Chloride 500 mls @ 500 mls/hr 06/16/24 11:27 06/16/24 12:37 Sodium Chloride 0.9% 500 Ml IV 06/16/24 12:26 Infused .Q1H ONE Infusion Sodium Chloride Confirm 06/16/24 11:33 Sodium Chloride 0.9% 500 Ml Administered 06/16/24 11:34 Dose 500 mls @ ud IV .STK-MED ONE Sodium Chloride 1,000 mls @ 150 mls/hr 06/16/24 13:45 06/16/24 20:45 Sodium Chloride 0.9% 1000 Ml IV 07/16/24 13:44 150 mls/hr .[id number] HUMBERTO Administration Piperacillin Sod/Tazobactam 100 mls @ 200 mls/hr 06/16/24 13:56 06/16/24 15:26 Sod 3.375 gm/ Sodium Chloride IV 06/16/24 14:25 Infused STAT ONE Infusion Sodium Chloride Confirm 06/16/24 14:00 Sodium Chloride 100ml Mini-Bag Plus Administered 06/16/24 14:01 Dose 100 mls @ ud IV .STK-MED ONE Sodium Chloride Confirm 06/16/24 13:41 Sodium Chloride 0.9% 1000 Ml Administered 06/16/24 13:42 Dose 1,000 mls @ ud .ROUTE .STK-MED ONE Sodium Chloride Confirm 06/16/24 20:41 Sodium Chloride 0.9% 1000 Ml Administered 06/16/24 20:42 Dose 1,000 mls @ ud .ROUTE .STK-MED ONE Lorazepam 1 mg 06/16/24 14:40 06/16/24 14:46 Lorazepam 2 Mg/1 Ml 2 Mg Vial IV 06/16/24 14:41 1 mg STAT ONE Administration Lorazepam Confirm 06/16/24 14:44 Lorazepam 2 Mg/1 Ml 2 Mg Vial Administered 06/16/24 14:45 Dose 2 mg .ROUTE .STK-MED ONE Lorazepam 1 mg 06/16/24 20:31 06/16/24 20:45 Lorazepam 2 Mg/1 Ml 2 Mg Vial IV 06/16/24 20:32 1 mg STAT ONE Administration Lorazepam Confirm 06/16/24 20:41 Lorazepam 2 Mg/1 Ml 2 Mg Vial Administered 06/16/24 20:42 Dose 2 mg .ROUTE .STK-MED ONE Ondansetron HCl 4 mg 06/16/24 11:25 06/16/24 11:37 Ondansetron Hcl 4 Mg/2 Ml Vial IV 06/16/24 11:26 4 mg STAT ONE Administration Ondansetron HCl Confirm 06/16/24 11:33 Ondansetron Hcl 4 Mg/2 Ml Vial Administered 06/16/24 11:34 Dose 4 mg .ROUTE .STK-MED ONE Ondansetron HCl 4 mg 06/16/24 20:31 06/16/24 20:45 Ondansetron Hcl 4 Mg/2 Ml Vial IV 06/16/24 20:32 4 mg STAT ONE Administration Ondansetron HCl Confirm 06/16/24 20:41 Ondansetron Hcl 4 Mg/2 Ml Vial Administered 06/16/24 20:42 Dose 4 mg .ROUTE .STK-MED ONE Piperacillin Sod/Tazobactam Sod Confirm 06/16/24 13:59 Piperacillin/Tazobactam Sodium 3.375 Gm Vial Administered 06/16/24 14:00 Dose 3.375 gm IV .STK-MED ONE Lab/Rad Data: Laboratory Result Diagrams 06/16/24 11:30 06/16/24 11:30 Laboratory Results 06/16/24 06/16/24 06/16/24 Range/Units 19:30 16:15 16:15 WBC (4.23-9.07) x10^3/uL RBC (4.63-6.08) x10^6/uL Hgb (13.7-17.5) g/dL Hct (40.1-51.0) % MCV (79.0-92.2) fL MCH (25.7-32.2) pg MCHC (32.3-36.5) g/dL RDW (11.6-14.4) % Plt Count (163-337) x10^3/uL MPV (9.4-12.4) fL Gran % (34.0-67.9) % Immature Gran % (Auto) (0.001-0.429) % Nucleat RBC Rel Count (0.00-0.2) % Eos # (Auto) (0.04-0.54) x10^3/uL Immature Gran # (Auto) (0.001-0.031) x10^3u/L Absolute Lymphs (auto) (1.32-3.57) x10^3/uL Absolute Monos (auto) (0.30-0.82) x10^3/uL Absolute Nucleated RBC (0.00-0.012) x10^3u/L Lymphocytes % (21.8-53.1) % Monocytes % (5.3-12.2) % Eosinophils % (0.8-7.0) % Basophils % (0.2-1.2) % Absolute Granulocytes (1.78-5.38) x10^3/uL Basophils # (0.01-0.08) x10^3/uL PT (9.4-12.5) SECONDS INR (0.8-3.0) pO2/FiO2 Ratio % VBG pH (7.32-7.42) VBG pCO2 at Pat Temp (42-55) mm/Hg VBG pO2 at Pat Temp (25-40) mm/Hg VBG HCO3 (22-28) meq/L VBG O2 Sat (Pema) (95-100) VBG Base Excess (-2.0-2.0) VBG Hemoglobin VBG Carboxyhemoglobin (0.0-6.9) % T HGB POC Potassium (3.5-5.1) Sodium (135-145) mmol/L Potassium (3.5-5.1) mmol/L Chloride (98-107) mmol/L Carbon Dioxide (22-30) mmol/L Anion Gap (5-15) MEQ/L BUN (9-20) mg/dL Creatinine (0.66-1.25) mg/dL Estimated GFR ML/MIN Glucose (74-106) mg/dL Lactic Acid (0.4-2.0) Calcium (8.4-10.2) mg/dL Total Bilirubin (0.2-1.3) mg/dL Direct Bilirubin (0.0-0.4) mg/dL AST (17-59) U/L ALT (0-50) U/L Alkaline Phosphatase (38-126) U/L Ammonia 17 (9-30) umol/L Troponin I < 0.012 (0.000-0.033) ng/mL Serum Total Protein (6.3-8.2) g/dL Albumin (3.5-5.0) g/dL Lipase (23-300) U/L Urine Color (Yellow) Urine Appearance (Clear) Urine pH (4.6-8.0) Ur Specific [place] (1.005-1.030) Urine Protein (Negative) Urine Glucose (UA) (Negative) mg/dL Urine Ketones (Negative) Urine Blood (Negative) Urine Nitrite (Negative) Urine Bilirubin (Negative) Urine Urobilinogen (0.2) mg/dL Ur Leukocyte Esterase (Negative) U Hyaline Cast (Auto) (0-2) /LPF Urine Microscopic RBC (0-5) /HPF Urine Microscopic WBC (0-5) /HPF Ur Epithelial Cells (None Seen) /HPF Urine Bacteria (None Seen) /HPF Urine Culture Reflexed (NO) Ethyl Alcohol 11 H (0-10) mg/dL Slides for Path Review 06/16/24 06/16/24 06/16/24 Range/Units 15:21 15:18 15:18 WBC (4.23-9.07) x10^3/uL RBC (4.63-6.08) x10^6/uL Hgb (13.7-17.5) g/dL Hct (40.1-51.0) % MCV (79.0-92.2) fL MCH (25.7-32.2) pg MCHC (32.3-36.5) g/dL RDW (11.6-14.4) % Plt Count (163-337) x10^3/uL MPV (9.4-12.4) fL Gran % (34.0-67.9) % Immature Gran % (Auto) (0.001-0.429) % Nucleat RBC Rel Count (0.00-0.2) % Eos # (Auto) (0.04-0.54) x10^3/uL Immature Gran # (Auto) (0.001-0.031) x10^3u/L Absolute Lymphs (auto) (1.32-3.57) x10^3/uL Absolute Monos (auto) (0.30-0.82) x10^3/uL Absolute Nucleated RBC (0.00-0.012) x10^3u/L Lymphocytes % (21.8-53.1) % Monocytes % (5.3-12.2) % Eosinophils % (0.8-7.0) % Basophils % (0.2-1.2) % Absolute Granulocytes (1.78-5.38) x10^3/uL Basophils # (0.01-0.08) x10^3/uL PT (9.4-12.5) SECONDS INR (0.8-3.0) pO2/FiO2 Ratio 21.0 % VBG pH 7.52 H (7.32-7.42) VBG pCO2 at Pat Temp 31 L (42-55) mm/Hg VBG pO2 at Pat Temp 76 H (25-40) mm/Hg VBG HCO3 25.3 (22-28) meq/L VBG O2 Sat (Pema) 97.1 (95-100) VBG Base Excess 3.1 H (-2.0-2.0) VBG Hemoglobin 13.8 VBG Carboxyhemoglobin 4.6 (0.0-6.9) % T HGB POC Potassium 4.8 (3.5-5.1) Sodium (135-145) mmol/L Potassium (3.5-5.1) mmol/L Chloride (98-107) mmol/L Carbon Dioxide (22-30) mmol/L Anion Gap (5-15) MEQ/L BUN (9-20) mg/dL Creatinine (0.66-1.25) mg/dL Estimated GFR ML/MIN Glucose (74-106) mg/dL Lactic Acid 5.1 H (0.4-2.0) Calcium (8.4-10.2) mg/dL Total Bilirubin (0.2-1.3) mg/dL Direct Bilirubin (0.0-0.4) mg/dL AST (17-59) U/L ALT (0-50) U/L Alkaline Phosphatase (38-126) U/L Ammonia (9-30) umol/L Troponin I < 0.012 (0.000-0.033) ng/mL Serum Total Protein (6.3-8.2) g/dL Albumin (3.5-5.0) g/dL Lipase (23-300) U/L Urine Color (Yellow) Urine Appearance (Clear) Urine pH (4.6-8.0) Ur Specific [place] (1.005-1.030) Urine Protein (Negative) Urine Glucose (UA) (Negative) mg/dL Urine Ketones (Negative) Urine Blood (Negative) Urine Nitrite (Negative) Urine Bilirubin (Negative) Urine Urobilinogen (0.2) mg/dL Ur Leukocyte Esterase (Negative) U Hyaline Cast (Auto) (0-2) /LPF Urine Microscopic RBC (0-5) /HPF Urine Microscopic WBC (0-5) /HPF Ur Epithelial Cells (None Seen) /HPF Urine Bacteria (None Seen) /HPF Urine Culture Reflexed (NO) Ethyl Alcohol (0-10) mg/dL Slides for Path Review 06/16/24 06/16/24 06/16/24 Range/Units 14:55 13:35 11:30 WBC (4.23-9.07) x10^3/uL RBC (4.63-6.08) x10^6/uL Hgb (13.7-17.5) g/dL Hct (40.1-51.0) % MCV (79.0-92.2) fL MCH (25.7-32.2) pg MCHC (32.3-36.5) g/dL RDW (11.6-14.4) % Plt Count (163-337) x10^3/uL MPV (9.4-12.4) fL Gran % (34.0-67.9) % Immature Gran % (Auto) (0.001-0.429) % Nucleat RBC Rel Count (0.00-0.2) % Eos # (Auto) (0.04-0.54) x10^3/uL Immature Gran # (Auto) (0.001-0.031) x10^3u/L Absolute Lymphs (auto) (1.32-3.57) x10^3/uL Absolute Monos (auto) (0.30-0.82) x10^3/uL Absolute Nucleated RBC (0.00-0.012) x10^3u/L Lymphocytes % (21.8-53.1) % Monocytes % (5.3-12.2) % Eosinophils % (0.8-7.0) % Basophils % (0.2-1.2) % Absolute Granulocytes (1.78-5.38) x10^3/uL Basophils # (0.01-0.08) x10^3/uL PT (9.4-12.5) SECONDS INR (0.8-3.0) pO2/FiO2 Ratio % VBG pH (7.32-7.42) VBG pCO2 at Pat Temp (42-55) mm/Hg VBG pO2 at Pat Temp (25-40) mm/Hg VBG HCO3 (22-28) meq/L VBG O2 Sat (Pema) (95-100) VBG Base Excess (-2.0-2.0) VBG Hemoglobin VBG Carboxyhemoglobin (0.0-6.9) % T HGB POC Potassium (3.5-5.1) Sodium (135-145) mmol/L Potassium (3.5-5.1) mmol/L Chloride (98-107) mmol/L Carbon Dioxide (22-30) mmol/L Anion Gap (5-15) MEQ/L BUN (9-20) mg/dL Creatinine (0.66-1.25) mg/dL Estimated GFR ML/MIN Glucose (74-106) mg/dL Lactic Acid 5.4 H (0.4-2.0) Calcium (8.4-10.2) mg/dL Total Bilirubin (0.2-1.3) mg/dL Direct Bilirubin (0.0-0.4) mg/dL AST (17-59) U/L ALT (0-50) U/L Alkaline Phosphatase (38-126) U/L Ammonia (9-30) umol/L Troponin I < 0.012 (0.000-0.033) ng/mL Serum Total Protein (6.3-8.2) g/dL Albumin (3.5-5.0) g/dL Lipase (23-300) U/L Urine Color [place] A (Yellow) Urine Appearance Cloudy A (Clear) Urine pH 6.0 (4.6-8.0) Ur Specific [place] 1.025 (1.005-1.030) Urine Protein 100 A (Negative) Urine Glucose (UA) Negative (Negative) mg/dL Urine Ketones 15 A (Negative) Urine Blood Negative (Negative) Urine Nitrite Positive A (Negative) Urine Bilirubin Moderate A (Negative) Urine Urobilinogen 2.0 A (0.2) mg/dL Ur Leukocyte Esterase Trace A (Negative) U Hyaline Cast (Auto) NONE SEEN (0-2) /LPF Urine Microscopic RBC 11-20 A (0-5) /HPF Urine Microscopic WBC 3-5 (0-5) /HPF Ur Epithelial Cells Rare (None Seen) /HPF Urine Bacteria None Seen (None Seen) /HPF Urine Culture Reflexed YES (NO) Ethyl Alcohol (0-10) mg/dL Slides for Path Review 06/16/24 06/16/24 06/16/24 Range/Units 11:30 11:30 11:30 WBC (4.23-9.07) x10^3/uL RBC (4.63-6.08) x10^6/uL Hgb (13.7-17.5) g/dL Hct (40.1-51.0) % MCV (79.0-92.2) fL MCH (25.7-32.2) pg MCHC (32.3-36.5) g/dL RDW (11.6-14.4) % Plt Count (163-337) x10^3/uL MPV (9.4-12.4) fL Gran % (34.0-67.9) % Immature Gran % (Auto) (0.001-0.429) % Nucleat RBC Rel Count (0.00-0.2) % Eos # (Auto) (0.04-0.54) x10^3/uL Immature Gran # (Auto) (0.001-0.031) x10^3u/L Absolute Lymphs (auto) (1.32-3.57) x10^3/uL Absolute Monos (auto) (0.30-0.82) x10^3/uL Absolute Nucleated RBC (0.00-0.012) x10^3u/L Lymphocytes % (21.8-53.1) % Monocytes % (5.3-12.2) % Eosinophils % (0.8-7.0) % Basophils % (0.2-1.2) % Absolute Granulocytes (1.78-5.38) x10^3/uL Basophils # (0.01-0.08) x10^3/uL PT 13.6 H (9.4-12.5) SECONDS INR 1.27 (0.8-3.0) pO2/FiO2 Ratio % VBG pH (7.32-7.42) VBG pCO2 at Pat Temp (42-55) mm/Hg VBG pO2 at Pat Temp (25-40) mm/Hg VBG HCO3 (22-28) meq/L VBG O2 Sat (Pema) (95-100) VBG Base Excess (-2.0-2.0) VBG Hemoglobin VBG Carboxyhemoglobin (0.0-6.9) % T HGB POC Potassium (3.5-5.1) Sodium 135 (135-145) mmol/L Potassium 4.6 (3.5-5.1) mmol/L Chloride 96 L (98-107) mmol/L Carbon Dioxide 24 (22-30) mmol/L Anion Gap 19.7 H (5-15) MEQ/L BUN 18 (9-20) mg/dL Creatinine 1.01 (0.66-1.25) mg/dL Estimated GFR 84.6 ML/MIN Glucose 94 (74-106) mg/dL Lactic Acid 5.2 H (0.4-2.0) Calcium 9.1 (8.4-10.2) mg/dL Total Bilirubin 6.40 H (0.2-1.3) mg/dL Direct Bilirubin 3.5 H (0.0-0.4) mg/dL AST 218 H (17-59) U/L ALT 106 H (0-50) U/L Alkaline Phosphatase 155 H (38-126) U/L Ammonia (9-30) umol/L Troponin I (0.000-0.033) ng/mL Serum Total Protein 7.6 (6.3-8.2) g/dL Albumin 3.9 (3.5-5.0) g/dL Lipase 276 (23-300) U/L Urine Color (Yellow) Urine Appearance (Clear) Urine pH (4.6-8.0) Ur Specific [place] (1.005-1.030) Urine Protein (Negative) Urine Glucose (UA) (Negative) mg/dL Urine Ketones (Negative) Urine Blood (Negative) Urine Nitrite (Negative) Urine Bilirubin (Negative) Urine Urobilinogen (0.2) mg/dL Ur Leukocyte Esterase (Negative) U Hyaline Cast (Auto) (0-2) /LPF Urine Microscopic RBC (0-5) /HPF Urine Microscopic WBC (0-5) /HPF Ur Epithelial Cells (None Seen) /HPF Urine Bacteria (None Seen) /HPF Urine Culture Reflexed (NO) Ethyl Alcohol (0-10) mg/dL Slides for Path Review 06/16/24 Range/Units 11:30 WBC 9.3 H (4.23-9.07) x10^3/uL RBC 3.44 L (4.63-6.08) x10^6/uL Hgb 13.1 L (13.7-17.5) g/dL Hct 36.7 L (40.1-51.0) % MCV 106.7 H (79.0-92.2) fL MCH 38.1 H (25.7-32.2) pg MCHC 35.7 (32.3-36.5) g/dL RDW 15.9 H (11.6-14.4) % Plt Count 72 L (163-337) x10^3/uL MPV 12.3 (9.4-12.4) fL Gran % 69.6 H (34.0-67.9) % Immature Gran % (Auto) 2.3 H (0.001-0.429) % Nucleat RBC Rel Count 0.0 (0.00-0.2) % Eos # (Auto) 0.01 L (0.04-0.54) x10^3/uL Immature Gran # (Auto) 0.21 H (0.001-0.031) x10^3u/L Absolute Lymphs (auto) 1.25 L (1.32-3.57) x10^3/uL Absolute Monos (auto) 1.29 H (0.30-0.82) x10^3/uL Absolute Nucleated RBC 0.00 (0.00-0.012) x10^3u/L Lymphocytes % 13.5 L (21.8-53.1) % Monocytes % 13.9 H (5.3-12.2) % Eosinophils % 0.1 L (0.8-7.0) % Basophils % 0.6 (0.2-1.2) % Absolute Granulocytes 6.44 H (1.78-5.38) x10^3/uL Basophils # 0.06 (0.01-0.08) x10^3/uL PT (9.4-12.5) SECONDS INR (0.8-3.0) pO2/FiO2 Ratio % VBG pH (7.32-7.42) VBG pCO2 at Pat Temp (42-55) mm/Hg VBG pO2 at Pat Temp (25-40) mm/Hg VBG HCO3 (22-28) meq/L VBG O2 Sat (Pema) (95-100) VBG Base Excess (-2.0-2.0) VBG Hemoglobin VBG Carboxyhemoglobin (0.0-6.9) % T HGB POC Potassium (3.5-5.1) Sodium (135-145) mmol/L Potassium (3.5-5.1) mmol/L Chloride (98-107) mmol/L Carbon Dioxide (22-30) mmol/L Anion Gap (5-15) MEQ/L BUN (9-20) mg/dL Creatinine (0.66-1.25) mg/dL Estimated GFR ML/MIN Glucose (74-106) mg/dL Lactic Acid (0.4-2.0) Calcium (8.4-10.2) mg/dL Total Bilirubin (0.2-1.3) mg/dL Direct Bilirubin (0.0-0.4) mg/dL AST (17-59) U/L ALT (0-50) U/L Alkaline Phosphatase (38-126) U/L Ammonia (9-30) umol/L Troponin I (0.000-0.033) ng/mL Serum Total Protein (6.3-8.2) g/dL Albumin (3.5-5.0) g/dL Lipase (23-300) U/L Urine Color (Yellow) Urine Appearance (Clear) Urine pH (4.6-8.0) Ur Specific [place] (1.005-1.030) Urine Protein (Negative) Urine Glucose (UA) (Negative) mg/dL Urine Ketones (Negative) Urine Blood (Negative) Urine Nitrite (Negative) Urine Bilirubin (Negative) Urine Urobilinogen (0.2) mg/dL Ur Leukocyte Esterase (Negative) U Hyaline Cast (Auto) (0-2) /LPF Urine Microscopic RBC (0-5) /HPF Urine Microscopic WBC (0-5) /HPF Ur Epithelial Cells (None Seen) /HPF Urine Bacteria (None Seen) /HPF Urine Culture Reflexed (NO) Ethyl Alcohol (0-10) mg/dL Slides for Path Review YES - Progress Progress Note: 06/16/24 11:45 CT and lab work from 06/15/24 showed: 1. fatty cirrhotic hepatomegaly 2. distended gallbladder w/ gallstones/gravel 3. chronic findings including arteriosclerotic disease and chronic bony findings bilirubin 4.5, AST 221, ALT 111, akl phos 146 06/16/24 12:12 lactic acid 5.2 total bilirubin 6.4, direct 3.5 CBC hemoconcentrated transaminitis largely unchanged from yesterday 06/16/24 12:12 RUQ US pending radiology read 06/16/24 13:13 RUQ US showed 1. Limited sonogram. Nonvisualization pancreas. 2. Gallbladder sludge and tiny gallstones/gravel. Negative for acute cholecystitis or biliary distention. 3. Fatty hepatomegaly. will discuss case w/ general surgery, pt will likely need MRCP and will require transfer 06/16/24 13:56 repeat lactic 5.4, will add zosyn, obtain UA 06/16/24 14:10 I spoke w/ Dr Naqvi - general surgery who recommends pt be transferred to tertiary facility w/ hepatology in setting of liver disease and gallbladder pathology 06/16/24 14:41 attempting transfer to [facility] pt admits to heavy daily drinking hx, reports his last alcoholic drink was yesterday afternoon, pt reporting some chills and diaphoresis, will give dose of ativan 1mg at this time 06/16/24 15:25 lactic acid remains elevated at 5.1, continue IV NS at 150ml/h VBG ordered still waiting to hear back from [facility] regarding possibility of transfer 06/16/24 15:41 i spoke w/ Dr Harrington - interventional GI at - he states that he does not believe pt is a candidate for ERCP, believes pt could be kept at a center w/ MRCP capabilities and GI that can manage his alcoholic hepatitis 06/16/24 15:56 now attempting to facilitate transfer to [facility] 06/16/24 16:22 I spoke w/ Dr Lora - hospitalist at [facility] who is willing to accept transfer as long as GI at their facility is willing to consult, GI to paged and I will speak w/ them regarding pt case 06/16/24 17:08 I spoke w/ Dr Rodriguez - GI at [facility] who reports he would be willing to see patient at their facility. He recommends adding acute hepatitis panel to current workup 06/16/24 19:09 Pt still awaiting transfer to [facility] I discussed pt case w/ Dr Robins who assumes care at 19:00 (SANGITA OLIVIER) We are currently awaiting transfer. Patient advised that his nausea is returning. Patient requesting another dose of nausea medication as well as Ativan. Patient's last dose was at 11 AM. 06/16/24 20:33 Patient's last dose of Zofran was at 11 AM. Last dose of Ativan was approximately 2 PM. 06/16/24 20:34 Patient transferred to [facility]. Patient transferred at [id number]. 06/17/24 04:47 (LLOYD ROBINS) Medical Desision Making - Risk of complications The pt has a high risk of morbidity or mortality based on: Decision regarding hospitilization or escalation of hosp level of care - Departure Departure Disposition: Home Critical Care Time: No - Departure Clinical Impression: Lactic acidosis, Hyperbilirubinemia Nausea & vomiting Qualifiers: Vomiting type: bilious vomiting Qualified Code(s): R11.14 - Bilious vomiting Alcoholic hepatitis Qualifiers: Ascites presence: without ascites Qualified Code(s): K70.10 - Alcoholic hepatitis without ascites Condition: Stable Referrals: RETA VALADEZ NP [Primary Care Provider] - Follow up/PCP as directed
[2024-06-16 11:38] LABS: Absolute Neutrophil Ct (ANC) 6.44 x10^3/uL (1.78-5.38); BASOPHIL % 0.6 % (0.2-1.2); Basophil (Absolute #) 0.06 x10^3/uL (0.01-0.08); Eosinophil % 0.1 % (0.8-7.0); Eosinophil (Absolute #) 0.01 x10^3/uL (0.04-0.54); Hematocrit 36.7 % (40.1-51.0); Hemoglobin 13.1 g/dL (13.7-17.5); IMMATURE GRAN # 0.21 x10^3u/L (0.001-0.031); IMMATURE GRAN % 2.3 % (0.001-0.429); Lymphocyte (Absolute #) 1.25 x10^3/uL (1.32-3.57); Lymphocytes % 13.5 % (21.8-53.1); Mean Cell Volume 106.7 fL (79.0-92.2); Mean Corpuscular Hemoglobin 38.1 pg (25.7-32.2); Mean Corpuscular Hgb Concent. 35.7 g/dL (32.3-36.5); Mean Platelet Volume 12.3 fL (9.4-12.4); Monocyte (Absolute #) 1.29 x10^3/uL (0.30-0.82); Monocytes % 13.9 % (5.3-12.2); Neutrophil % 69.6 % (34.0-67.9); Platelet Count 72 x10^3/uL (163-337); Red Blood Count 3.44 x10^6/uL (4.63-6.08); Red Cell Distribution Width 15.9 % (11.6-14.4); White Blood Count 9.3 x10^3/uL (4.23-9.07)
[2024-06-16 11:42] LABS: ALBUMIN 3.9 g/dL (3.5-5.0); ANION GAP 19.7 MEQ/L (5-15); BILIRUBIN,TOTAL 6.4 mg/dL (0.2-1.3); Calcium 9.1 mg/dL (8.4-10.2); Creatinine 1 1.01 mg/dL (0.66-1.25); Direct Bilirubin 3.5 mg/dL (0.0-0.4); EST GLOMERULAR FILTRATION RATE 84.6 ML/MIN; Potassium 4.6 mmol/L (3.5-5.1); Total Protein 7.6 g/dL (6.3-8.2)
[2024-06-16 11:44] LABS: INR 1.27 (0.8-3.0); PROTIME 13.6 SECONDS (9.4-12.5)
[2024-06-16 12:19] LABS: Slide Review 1 YES
--- NOTE | 2024-06-16 13:07 | XRAY ---
Indication: Gallstones. Vomiting. Two-dimensional gallbladder sonogram performed. Comparison: None Sonogram limited due to patient body habitus and bowel gas. Nonvisualization pancreas. Visualized gallbladder normally distended with mild sludge and a few tiny stones/gravel in the dependent portion. No abnormal gallbladder wall thickening or pericholecystic fluid. Common bile duct measures 4.9 mm. No intrahepatic biliary distention. Visualized liver demonstrates fatty 20.3 cm hepatomegaly without focal solid/cystic mass or ascites. Right kidney measures 12.4 x 4.6 x 5.6 cm and sonographically unremarkable. Impression: 1. Limited sonogram. Nonvisualization pancreas. 2. Gallbladder sludge and tiny gallstones/gravel. Negative for acute cholecystitis or biliary distention. 3. Fatty hepatomegaly.
[2024-06-16] MEDS ORDERED: Sodium Chloride 0.9% 1000 ML 1,000 ML ONE ×2 (13:41→20:41)
[2024-06-16] MEDS: Sodium Chloride 0.9% 1000 ML 1,000 ML IV SCH (13:43)
[2024-06-16] MEDS ORDERED: PIPERACILLIN/TAZOBACTAM IV ONE (13:59)
[2024-06-16] MEDS ORDERED: Sodium Chloride 100ML MINI-BAG PLUS 100 ML IV ONE (14:00)
[2024-06-16] MEDS: PIPERACILLIN/TAZOBACTAM 3.375 GM in Sodium Chloride 100ML MINI-BAG PLUS 100 ML IV ONE (14:07)
[2024-06-16] MEDS ORDERED: Ativan 2 MG/1 ML VIAL ONE ×2 (14:44→20:41)
[2024-06-16] MEDS: Ativan 2 MG/1 ML VIAL IV ONE ×2 (14:46→20:45)
[2024-06-16 15:11] LABS: Appearance Cloudy (Clear); Bacteria None Seen /HPF (None Seen); Bilirubin Moderate (Negative); Blood Negative (Negative); Epithelial Cells Rare /HPF (None Seen); Glucose, Urine Negative (Negative); Hyaline Casts NONE SEEN /LPF (0-2); Ketones 15 (Negative); Leukocyte Esterase Trace (Negative); Nitrite Positive (Negative); Protein,Urine Dip 100 (Negative); Specific Gravity 1.025 (1.005-1.030)
[2024-06-16 15:26] LABS: VBG BASE EXCESS 3.1 (-2.0-2.0); VBG CARBOXYHEMOGLOBIN 4.6 % T HGB (0.0-6.9); VBG HCO3- 25.3 meq/L (22-28); VBG HEMOGLOBIN 13.8; VBG O2 SATURATION 97.1 (95-100); VBG POTASSIUM 4.8 (3.5-5.1); VBG pH 7.52 (7.32-7.42)
[2024-06-16 22:05] VITALS: BP 115/67; PULSE 92; RESP 20; O2SAT 98
[2024-06-18 07:10] LABS: HBsAg Screen Negative (Negative); HCV Ab Non Reactive (Non Reactive); Hep B Core Ab, IgM Negative (Negative)
[2024-06-18 11:37] LABS: Hep A Ab, IgM Negative (Negative)
== END 2024-06-16 22:08 | disposition short-term general hospital (02) ==
LOC: ED 10:51
DX: K70.10 Alcoholic hepatitis without ascites (principal); E87.20 Acidosis, unspecified; E80.6 Other disorders of bilirubin metabolism; R11.14 Bilious vomiting; K80.20 Calculus of gallbladder without cholecystitis without obstruction; E78.5 Hyperlipidemia, unspecified; I10 Essential (primary) hypertension; Z79.899 Other long term (current) drug therapy
CPT/HCPCS: 36415; 76705; 80048; 80074; 80076; 81001; 82077; 82140; 82805; 83605; 83690; 84484; 85025; 85610; 87086; 96361; 96365; 96374; 96375; 96376; 99285; J2060; J2405

== ENCOUNTER 2024-09-28 05:45 | Day surgery (SDC) | payer MEDICARE ==
[2024-09-28] MEDS: Lactated Ringers 1,000 ML IV SCH (06:11)
[2024-09-28 06:28] VITALS: RESP 18
[2024-09-28] MEDS ORDERED: propofoL IV ONE (07:33)
[2024-09-28] MEDS ORDERED: Xylocaine-Mpf 2% 5 Ml Vial ONE (07:34)
[2024-09-28 08:08] VITALS: BP 114/70; PULSE 83; TEMP 98.4; O2SAT 97
--- NOTE | 2024-09-29 09:58 | OP ---
SURGERY DATE/TIME: 09/28/2024 2141-0601 PREOPERATIVE DIAGNOSES: 1) Alcoholic cirrhosis of the liver. 2) Sludging of the gallbladder. POSTOPERATIVE DIAGNOSES: 1) Moderate gastritis. 2) Delayed gastric emptying. PROCEDURE: Esophagogastroduodenoscopy with cold forceps biopsy of the gastric antrum. SURGEON: Huber Sanchez MD ANESTHESIA: Medications were given by the anesthesia department. INDICATIONS: The patient is a 59-year-old white male patient with known history of alcoholic cirrhosis. Concern was for the patient having some abdominal discomfort and evaluation for the possibility of esophageal varices. The patient was apprised of the risks of the procedure including the risk of perforation, phlebitis, untoward reaction to medication, bleeding, and missed lesions. The patient verbalized his understanding and desired to have procedure performed. DESCRIPTION OF PROCEDURE AND FINDINGS: The patient was given medication by the anesthesia department. He had continuous pulse oximetry, ECG monitoring, and intermittent blood pressure monitoring during the examination. He was placed in the left lateral decubitus position. A bite block was placed, and a flexible Olympus gastroscope was used to intubate the oropharynx. A view of the larynx was obtained and was normal. The scope was easily introduced into the esophagus. There was no evidence of inflammation or esophageal varices. The EG junction appeared to be essentially normal. As the scope was introduced in the stomach, there were food products still noted in the stomach. In the body and antrum, there was noted to be some inflammation consistent with NSAID-type gastritis. Biopsies were obtained of the gastric antrum to rule out the presence of Helicobacter pylori-type organisms. The scope was then passed through the pylorus and the duodenum was inspected and found to be essentially normal. The scope was withdrawn towards the stomach and retroflexed view was obtained and no significant hiatal hernia was noted. The scope was removed from the patient, who tolerated the procedure well and was sent back to outpatient recovery in good condition.
== END 2024-09-28 08:15 | disposition home or self-care (01) ==
LOC: SDC 05:45
PROVIDERS: ATTEND Family Medicine
DX: K29.70 Gastritis, unspecified, without bleeding (principal); K70.30 Alcoholic cirrhosis of liver without ascites; K82.9 Disease of gallbladder, unspecified; K30 Functional dyspepsia